=== PATIENT | male | born 1980 | race African-American/Black ===

== ENCOUNTER 2017-02-28 10:45 | Emergency (ER) | payer OTHER ==
[~2017-02-28] VITALS: Ht 165.1 cm; Wt 81.6 kg
== END 2017-02-28 12:07 | disposition home or self-care (01) ==
LOC: ED 10:45
DX: J20.9 Acute bronchitis, unspecified (principal); R09.1 Pleurisy
CPT/HCPCS: 96372; 99283; J0696; J1100